=== PATIENT | male | born 1965 | race Caucasian/White ===

== ENCOUNTER 2019-03-03 11:43 | Outpatient (CLI) | payer BC ==
[2019-03-03] MEDS ORDERED: MULT-658 PO (14:25)
[2019-03-03] MEDS ORDERED: ASPI81TA50 PO (14:25)
[2019-03-03] MEDS ORDERED: SITA1TAB PO (14:25)
[2019-03-03] MEDS ORDERED: CLOP75TA52 PO (14:25)
[2019-03-03] MEDS ORDERED: LISI-170 PO (14:25)
[2019-03-03] MEDS ORDERED: fish oil PO (14:25)
[2019-03-03] MEDS ORDERED: OMNIPAQUE 350 MG/ML, 150 ML BOTTLE ONE (16:09)
== END 2019-03-03 23:59 | disposition home or self-care (01) ==
LOC: CFH 11:43
PROVIDERS: ATTEND Internal Medicine Cardiovascular Disease
DX: Z01.818 Encounter for other preprocedural examination (principal); I48.91 Unspecified atrial fibrillation
CPT/HCPCS: 71046; 75572; 82565; Q9967

== ENCOUNTER 2019-03-03 13:09 | Outpatient (CLI) | payer BC ==
[~2019-03-03] VITALS: Ht 190.5 cm; Wt 120.5 kg
[2019-03-03] MEDS ORDERED: SITA1TAB PO (14:25)
[2019-03-03] MEDS ORDERED: CLOP75TA52 PO (14:25)
[2019-03-03] MEDS ORDERED: LISI-170 PO (14:25)
[2019-03-03] MEDS ORDERED: MULT-658 PO (14:25)
[2019-03-03] MEDS ORDERED: fish oil PO (14:25)
[2019-03-03] MEDS ORDERED: ASPI81TA50 PO (14:25)
[2019-03-03 14:37] LABS: ANION GAP 7 mmol/L (5-15); CALCIUM 9.3 mg/dL (8.5-10.1); CHLORIDE 108 mmol/L (98-107)
[2019-03-03 14:46] LABS: MEAN CORPUSCULAR VOLUME 54.7 fL (81-97); MEAN PLATELET VOLUME 8.4 fL (7.4-10.4); PLATELET COUNT 570 x10^3/uL (130-400); RED BLOOD COUNT 4.17 x10^6/uL (4.38-5.82); RED CELL DISTRIBUTION WIDTH 22.4 % (9.4-14.8)
[2019-03-03 14:47] LABS: HEMOGRAM NOTE RECHECKED; MEAN CORPUSCULAR HGB CONC 27.4 g/dL (33.2-36.2)
[2019-03-03 15:45] LABS: BASOPHILS # (AUTO) 0.08 x10^3/uL (0-0.1); BASOPHILS % (AUTO) 1 % (0-1); EOSINOPHILS # (AUTO) 0.28 x10^3/uL (0-0.4); EOSINOPHILS % (AUTO) 3 % (1-7); LYMPHOCYTES % (AUTO) 18 % (22-44); MD MORPH REVIEW ONLY; MONOCYTES # (AUTO) 0.54 x10^3/uL (0.2-0.8); MONOCYTES % (AUTO) 5 % (2-9); NEUTROPHILS # (AUTO) 7.76 x10^3/uL (1.8-6.8); NEUTROPHILS % (AUTO) 74 % (42-75)
[2019-03-03 15:46] LABS: ANISOCYTOSIS 2+; MICROCYTOSIS 2+; OVALOCYTES 1+; POLYCHROMASIA 1+; TEAR DROPS 1+
[2019-03-03 15:48] LABS: <PLATELET ESTIMATE> INCREASED; <PLT MORPHOLOGY> NORMAL PLT MORPH; SCHISTOCYTES 1+
[2019-03-12] MEDS ORDERED: FERR325T18 PO (12:29)
== END 2019-03-03 23:59 | disposition home or self-care (01) ==
LOC: STAR 13:09
PROVIDERS: ATTEND Internal Medicine Cardiovascular Disease
DX: I48.91 Unspecified atrial fibrillation (principal)
CPT/HCPCS: 36415; 80048; 85025

== ENCOUNTER → 2019-05-11 | Outpatient (CLI) | payer BC ==
[~2019-05-11] MED LIST: ASPI-515 PO; ASPI81TA50 PO; CELE200C PO; CLOP75TA52 PO; FERR325T18 PO; LISI-170 PO; MULT-658 PO; OMEG-72 PO; OXYC5CAP2 PO; SITA1TAB PO; fish oil PO
== END | disposition home or self-care (01) ==
LOC: PETCFH 13:14
PROVIDERS: ATTEND Pathology Hematology
DX: C18.7 Malignant neoplasm of sigmoid colon (principal)
CPT/HCPCS: 78815; A9552

== ENCOUNTER → 2019-07-31 | Outpatient (CLI) | payer BC ==
[~2019-07-31] MED LIST changes: +OMNIPAQUE 350 MG/ML, 100ML BOTTLE ONE
== END | disposition home or self-care (01) ==
LOC: CFH 11:53
PROVIDERS: ATTEND Pathology Hematology
DX: C18.7 Malignant neoplasm of sigmoid colon (principal); K76.0 Fatty (change of) liver, not elsewhere classified; N28.1 Cyst of kidney, acquired; N40.0 Benign prostatic hyperplasia without lower urinary tract symptoms; R16.1 Splenomegaly, not elsewhere classified
CPT/HCPCS: 74177; Q9967

== ENCOUNTER 2019-10-20 12:17 | Outpatient (CLI) | payer BC ==
[~2019-10-20 12:17] MED LIST changes: -OMNIPAQUE 350 MG/ML, 100ML BOTTLE ONE
[2019-10-20] MEDS ORDERED: GADOTERATE 7.5 MMOL/15 ML SYR ONE (13:07)
== END 2019-10-20 23:59 | disposition home or self-care (01) ==
LOC: CFH 12:17
PROVIDERS: ATTEND Pathology Hematology
DX: C18.0 Malignant neoplasm of cecum (principal)
CPT/HCPCS: 70553; 78815; A9552; A9575

== ENCOUNTER 2020-02-16 10:00 | Day surgery (SDC) | payer BC ==
[~2020-02-16] VITALS: Ht 190.5 cm; Wt 117.7 kg
[2020-02-16] MEDS ORDERED: LIDOCAINE 1%, 20ML ONE (11:02)
[2020-02-16] MEDS ORDERED: LIDOCAINE 1%, 10ML ONE (11:02)
[2020-02-16] MEDS ORDERED: SODIUM CHLORIDE 0.9% 1,000 ML IV SCH (11:13)
[2020-02-16 11:17] VITALS: BP 151/98
[2020-02-16] MEDS ORDERED: PLEASE ENTER HEIGHT AND WEIGHT MC SCH (11:30)
[2020-02-16] MEDS ORDERED: CEFAZOLIN PMX 1GM/50ML 50 ML IV ONE (11:30)
[2020-02-16] MEDS ORDERED: FENTANYL PF 100 MCG/2ML ONE ×2 (11:41)
[2020-02-16] MEDS ORDERED: NALOXONE 1 MG/ML, 2ML ONE (11:42)
[2020-02-16] MEDS ORDERED: MIDAZOLAM 1 MG/ML, 5ML ONE (11:42)
[2020-02-16] MEDS ORDERED: FLUMAZENIL 0.1 MG/1 ML, 5ML ONE (11:42)
[2020-02-16] MEDS ORDERED: [UNRECOGNIZED DRUG - OTHER] PO (11:45)
== END 2020-02-16 14:00 | disposition home or self-care (01) ==
LOC: OUT 10:00
PROVIDERS: ATTEND Pathology Hematology
DX: C18.0 Malignant neoplasm of cecum (principal); E11.9 Type 2 diabetes mellitus without complications; I10 Essential (primary) hypertension; J45.909 Unspecified asthma, uncomplicated; D64.9 Anemia, unspecified; Z79.02 Long term (current) use of antithrombotics/antiplatelets; Z79.82 Long term (current) use of aspirin; Z79.84 Long term (current) use of oral hypoglycemic drugs; Z79.899 Other long term (current) drug therapy; Z86.73 Personal history of transient ischemic attack (TIA), and cerebral infarction without residual deficits; Z88.8 Allergy status to other drugs, medicaments and biological substances; Z90.49 Acquired absence of other specified parts of digestive tract
CPT/HCPCS: 36561; 76937; 77001; 99156; 99157; C1788; J0690; J1642; J2250; J3010; J7030; J2310

== ENCOUNTER 2020-10-24 16:04 | Inpatient (IN) | payer BC ==
[~2020-10-24] VITALS: Ht 190.5 cm; Wt 103.0 kg
[~2020-10-24 16:04] MED LIST changes: -ASPI-515 PO; +ASPI-963 PO; +[UNRECOGNIZED DRUG - OTHER] PO
--- NOTE | 2020-10-24 16:35 | NUR ---
PT SENT FROM [facility] TODAY HX OF COLON CANCER AND RESECTION IN MARCH 2019. HAD AN MRI AT [facility] THEIR REPORT, "FROM WHAT THE PT STATES," 'WHERE THE SMALL AND LARGE BOWEL OBSTRUCTION, OR A TUMOR BLOCKING IT AND NOW HAS A BOWEL OBSTRUCTION WITH INCREASED PAIN. THE PAIN HAS BEEN GOING ON FOR ABOUT 2 WEEKS. THIS LAST SATURDAY GOT WAY WORSE AND WAS THTROWING UP OWN FECES AND HAS NOT EAT MUCH THE LAST 10 DAYS. ABOUT AN HOUR AFTER EATING IT WANTS TO COME BACK UP.
--- NOTE | 2020-10-24 17:05 | NUR ---
PROVIDER AT BEDSIDE TO DO EVALUATION
[2020-10-24] MEDS ORDERED: MORPHINE SULFATE 4 MG/ML, 1ML IVPush PRN (17:30)
[2020-10-24] MEDS ORDERED: ONDANSETRON 2MG/ML, 2ML IVPush ONE (17:30)
[2020-10-24] MEDS ORDERED: SODIUM CHLORIDE FLUSH 10ML SYR IVF ONE (17:30)
[2020-10-24] MEDS ORDERED: SODIUM CHLORIDE 0.9% 1,000 ML IV ONE (17:30)
[2020-10-24] MEDS ORDERED: SODIUM CHLORIDE FLUSH 10ML SYR IVF PRN (18:00)
[2020-10-24] MEDS ORDERED: ONDANSETRON 2MG/ML, 2ML ONE (18:21)
[2020-10-24] MEDS ORDERED: MORPHINE SULFATE 4 MG/ML, 1ML ONE (18:21)
--- NOTE | 2020-10-24 18:34 | NUR ---
HOSPITALIST DOLORES DONATO AT BEDSIDE.
--- NOTE | 2020-10-24 18:58 | NUR ---
ATTEMPT TO PLACE NG TUBE, PT DID NOT TOLERATE AND ASK TO HAVE IT REMOVED.
[2020-10-24] MEDS: SODIUM CHLORIDE 0.9% 1,000 ML IV SCH (19:00)
[2020-10-24] MEDS ORDERED: ACETAMINOPHEN 325 MG TABLET PO PRN (19:00)
[2020-10-24] MEDS ORDERED: PROMETHAZINE 25 MG/ML, 1ML IM PRN (19:00)
[2020-10-24] MEDS ORDERED: ONDANSETRON 2MG/ML, 2ML IVPush PRN (19:00)
[2020-10-24] MEDS ORDERED: morphine SULFATE 10 MG/ML, 1ML IVPush PRN (19:00)
[2020-10-24] MEDS ORDERED: KETOROLAC 30 MG/1 ML IV PRN (19:00)
[2020-10-24] MEDS ORDERED: HYDROcodone/APAP 5/325 TABLET PO PRN (19:00)
--- NOTE | 2020-10-24 19:28 | NUR ---
REPORT TO SADE CARTER.
[2020-10-24 19:29] LABS: INTERNATIONAL NORMALIZED RATIO 1.08 (0.93-1.1); PROTHROMBIN TIME 11.5 Seconds (9.6-11.5)
[2020-10-24 20:51] VITALS: BP 183/78
[2020-10-25 01:16] VITALS: BP 155/89
[2020-10-25 05:43] LABS: BASOPHILS % (AUTO) 1 % (0-1); EOSINOPHILS % (AUTO) 6 % (1-7); LYMPHOCYTES % (AUTO) 22 % (22-44); MEAN CORPUSCULAR HEMOGLOBIN 26.4 pg (27.5-34.5); MEAN CORPUSCULAR HGB CONC 32.9 g/dL (33.2-36.2); MEAN PLATELET VOLUME 8.2 fL (7.4-10.4); MONOCYTES % (AUTO) 9 % (2-9); NEUTROPHILS % (AUTO) 61 % (42-75); PLATELET COUNT 328 x10^3/uL (130-400); RED BLOOD COUNT 4.18 x10^6/uL (4.38-5.82)
[2020-10-25 05:45] LABS: CHLORIDE 109 mmol/L (98-107)
[2020-10-25 06:07] LABS: ALANINE AMINOTRANSFERASE 19 U/L (12-78); ALBUMIN 3.1 g/dL (3.4-5.0); ALKALINE PHOSPHATASE 287 U/L (45-117); ANION GAP 8 mmol/L (5-15); BILIRUBIN,TOTAL 0.7 mg/dL (0.2-1.0); CALCIUM 8.7 mg/dL (8.5-10.1); CREATININE 0.82 mg/dL (0.7-1.3); TOTAL PROTEIN 6.4 g/dL (6.4-8.2)
[2020-10-25] MEDS: SODIUM CHLORIDE 0.9% 1,000 ML IV SCH (08:00)
[2020-10-25] MEDS ORDERED: HYDR-2214 PO (08:10)
== END 2020-10-25 08:50 | disposition hospice, home (50) | DRG 374 ==
LOC: ED 16:34 → 4NE 20:30
PROVIDERS: ADMIT Internal Medicine; ATTEND Hospitalist
DX: C78.5 Secondary malignant neoplasm of large intestine and rectum (principal); G95.11 Acute infarction of spinal cord (embolic) (nonembolic); I47.1 Supraventricular tachycardia; K63.0 Abscess of intestine; K56.52 Intestinal adhesions [bands] with complete obstruction; E11.9 Type 2 diabetes mellitus without complications; E87.6 Hypokalemia; I10 Essential (primary) hypertension; K52.9 Noninfective gastroenteritis and colitis, unspecified; Z79.899 Other long term (current) drug therapy; Z79.82 Long term (current) use of aspirin; Z88.8 Allergy status to other drugs, medicaments and biological substances; Z79.891 Long term (current) use of opiate analgesic
CPT/HCPCS: 36415; 80053; 83735; 84100; 84443; 85025; 85610; 96374; 96375; G0378; J2405; J2270; J7030